=== PATIENT | male | born 1940 | race Caucasian/White ===

== ENCOUNTER 2021-05-17 12:23 | Inpatient (IN) ==
[2021-05-17] MEDS: cefTRIAXone 1,000 MG in 0.9 % Sodium Chloride Mini Bag 100 ML IVPB SCH (04:33)
[2021-05-17 07:25] LABS: Mean Corpuscular Volume 100.2 fL (83.0-100.0)
[2021-05-17 07:27] LABS: Hematocrit 40.5 % (37.5-50.1); Hemoglobin 13.9 g/dL (12.9-16.9); Mean Corpuscular HGB Conc 34.3 g/dL (31.6-35.5); Mean Corpuscular Hemoglobin 34.4 pg (28.0-33.3); Red Blood Count 4.04 M/mcL (4.19-5.50); Red Cell Distribution Width 13.6 % (11.5-14.5); White Blood Count 2.4 K/mcL (4.3-11.1)
[2021-05-17 07:31] LABS: BUN/Creatinine Ratio 19 (6-26); Blood Urea Nitrogen 23 mg/dL (8-23); Calcium 8.6 mg/dL (8.6-10.3); Carbon Dioxide 23 mEq/L (23-29); Chloride 109 mEq/L (98-107); Creatine Kinase 300 Units/L (30-223); Glucose 217 mg/dL (70-105); Lactate Dehydrogenase 594 Units/L (140-271); Osmolality,Calculated 306 (280-300); Potassium 3.1 mEq/L (3.5-5.1); Sodium 143 mEq/L (136-145); eGFR For African Americans > 60 (> 60); eGFR For Non-African Americans 59 (> 60)
[2021-05-17] MEDS: Aspirin 81 MG TAB.CHEW PO SCH (09:43)
[2021-05-17] MEDS: Azithromycin 500 MG in 0.9 % Sodium Chloride 250 ML IVPB SCH (09:52)
[2021-05-17 10:59] LABS: C-Reactive Protein 136 mg/L (Less than 10); Ferritin > 1500 ng/mL (20-250)
[~2021-05-17 12:23] MED LIST: *HR* Enoxaparin 40 MG/0.4 ML SYRINGE SQ SCH; *HR* Heparin 5,000 UNIT/ML VIAL IVP ONE; *HR* Heparin 5,000 UNIT/ML VIAL IVP PRN; 0.9 % Sodium Chloride 250 ML ONE; Heparin 25,000UNIT/250ML 1/2NS 25,000 UNIT/250 ML IV.SOLN IVC SCH; Ipratropium 1 PUFF INHALER IH PRN; Metoprolol XL (24 HR) Succ 50 MG TAB.ER.24H PO SCH; Naloxone 0.4 MG/ML INJ IVP PRN; Ondansetron 4 MG/2 ML VIAL IVP PRN; Perflutren Lipid Microsphere 1.3 ML in 0.9 % Sodium Chloride 8.7 ML IVP PRN; Remdesivir 100 MG in 0.9 % Sodium Chloride 100 ML IVPB SCH
[2021-05-17 12:27] LABS: Alanine Aminotransferase 70 Units/L (7-52); Albumin 3.3 g/dL (3.5-5.7); Albumin/Globulin Ratio 1.1 (1.1-2.2); Alkaline Phosphatase 85 Units/L (34-104); Aspartate Amino Transferase 192 Units/L (13-39); Globulin 3.1 g/dL (2.4-3.5); Total Protein 6.4 g/dL (6.4-8.9)
[2021-05-17 13:30] LABS: Hemoglobin 14.1 g/dL (12.9-16.9); Mean Corpuscular Volume 100.5 fL (83.0-100.0)
[2021-05-17 13:32] LABS: Hematocrit 41.5 % (37.5-50.1); Immature Platelets 7.5 % (1.1-6.1); Mean Corpuscular Hemoglobin 34.1 pg (28.0-33.3); Mean Platelet Volume 11.3 fL (9.4-12.4); Red Blood Count 4.13 M/mcL (4.19-5.50); Red Cell Distribution Width 13.7 % (11.5-14.5); White Blood Count 3.8 K/mcL (4.3-11.1)
[2021-05-17 13:38] LABS: Heparin anti-factor XA UFH < 0.04 IU/mL (0.30-0.70)
[2021-05-17 13:39] LABS: INR 1.1; Prothrombin Time 12.3 Seconds (9.4-12.1)
[2021-05-17 13:41] LABS: D-Dimer 2043 ng/mLFEU (0-500)
[2021-05-17] MEDS ORDERED: Remdesivir 200 MG in 0.9 % Sodium Chloride 100 ML IVPB ONE (14:53)
[2021-05-17] MEDS ORDERED: Furosemide 20 MG/2 ML VIAL IVP ONE (21:02)
[2021-05-18] MEDS: Metoprolol XL (24 HR) Succ 50 MG TAB.ER.24H PO SCH ×2 (00:34→21:16)
[2021-05-18] MEDS: Azithromycin 500 MG in 0.9 % Sodium Chloride 250 ML IVPB SCH (07:46)
[2021-05-18] MEDS: Aspirin 81 MG TAB.CHEW PO SCH (07:46)
[2021-05-18 09:38] LABS: Basophils % 0.1 %; Hematocrit 42.3 % (37.5-50.1); Hemoglobin 14.2 g/dL (12.9-16.9); Immature Granulocytes % 0.7 % (0-4); Lymphocytes # 0.6 K/mcL (0.6-4.6); Lymphocytes % 6.5 %; Mean Corpuscular HGB Conc 33.6 g/dL (31.6-35.5); Mean Corpuscular Hemoglobin 33.7 pg (28.0-33.3); Mean Corpuscular Volume 100.5 fL (83.0-100.0); Monocytes # 0.3 K/mcL (0.0-1.3); Monocytes % 3.1 %; Neutrophils # 7.7 K/mcL (1.6-8.9); Platelet Count 102 K/mcL (140-400); Red Blood Count 4.21 M/mcL (4.19-5.50); Red Cell Distribution Width 13.7 % (11.5-14.5); Segmented Neutrophils % 89.6 %
[2021-05-18] MEDS: Ipratropium 1 PUFF INHALER IH SCH ×3 (09:51→22:09)
[2021-05-18 09:55] LABS: White Blood Count 8.6 K/mcL (4.3-11.1)
[2021-05-18 10:15] LABS: Alanine Aminotransferase 128 Units/L (7-52); Albumin 3.5 g/dL (3.5-5.7); Albumin/Globulin Ratio 1.1 (1.1-2.2); Alkaline Phosphatase 106 Units/L (34-104); Aspartate Amino Transferase 268 Units/L (13-39); BUN/Creatinine Ratio 28 (6-26); Bilirubin,Direct 0.3 mg/dL (0.0-0.2); Bilirubin,Indirect 0.6 mg/dL (0.0-1.0); Bilirubin,Total 0.9 mg/dL (0.3-1.0); Blood Urea Nitrogen 35 mg/dL (8-23); Calcium 8.7 mg/dL (8.6-10.3); Carbon Dioxide 19 mEq/L (23-29); Chloride 112 mEq/L (98-107); Globulin 3.2 g/dL (2.4-3.5); Glucose 134 mg/dL (70-105); Osmolality,Calculated 306 (280-300); Potassium 3.4 mEq/L (3.5-5.1); Sodium 143 mEq/L (136-145); Total Protein 6.7 g/dL (6.4-8.9); eGFR For African Americans > 60 (> 60); eGFR For Non-African Americans 56 (> 60)
[2021-05-18] MEDS: Loratadine 10 MG TABLET PO SCH (10:43)
[2021-05-18] MEDS: Furosemide 40 MG/4 ML VIAL IVP SCH (11:02)
[2021-05-18] MEDS: cefTRIAXone 1,000 MG in 0.9 % Sodium Chloride Mini Bag 100 ML IVPB SCH (11:08)
[2021-05-18] MEDS: cefTRIAXone 1,000 MG in Water for inj. (sterile) 10 ML IVP SCH (11:39)
[2021-05-18] MEDS ORDERED: Furosemide 40 MG/4 ML VIAL IVP ONE (14:00)
[2021-05-18] MEDS ORDERED: Remdesivir 100 MG in 0.9 % Sodium Chloride 100 ML IVPB SCH (15:00)
[2021-05-19] MEDS: Ipratropium 1 PUFF INHALER IH SCH ×4 (04:27→21:35)
[2021-05-19] MEDS: *HR* Heparin 5,000 UNIT/ML VIAL SQ SCH ×2 (06:06→17:57)
[2021-05-19 06:21] LABS: Hematocrit 41.7 % (37.5-50.1); Hemoglobin 14.1 g/dL (12.9-16.9); Immature Granulocytes % 0.7 % (0-4); Lymphocytes # 0.4 K/mcL (0.6-4.6); Lymphocytes % 7.7 %; Mean Corpuscular HGB Conc 33.8 g/dL (31.6-35.5); Mean Corpuscular Hemoglobin 33.6 pg (28.0-33.3); Mean Corpuscular Volume 99.3 fL (83.0-100.0); Mean Platelet Volume 11.2 fL (9.4-12.4); Monocytes # 0.4 K/mcL (0.0-1.3); Monocytes % 6.3 %; Neutrophils # 4.9 K/mcL (1.6-8.9); Platelet Count 101 K/mcL (140-400); Red Cell Distribution Width 13.6 % (11.5-14.5); Segmented Neutrophils % 85.3 %; White Blood Count 5.7 K/mcL (4.3-11.1)
[2021-05-19 06:46] LABS: Albumin 3.5 g/dL (3.5-5.7); Albumin/Globulin Ratio 1.3 (1.1-2.2); Bilirubin,Direct 0.2 mg/dL (0.0-0.2); Bilirubin,Indirect 0.6 mg/dL (0.0-1.0); Bilirubin,Total 0.8 mg/dL (0.3-1.0); Globulin 2.8 g/dL (2.4-3.5); Total Protein 6.3 g/dL (6.4-8.9)
[2021-05-19 06:49] LABS: BUN/Creatinine Ratio 31 (6-26); Blood Urea Nitrogen 38 mg/dL (8-23); Calcium 8.7 mg/dL (8.6-10.3); Carbon Dioxide 18 mEq/L (23-29); Chloride 115 mEq/L (98-107); Glucose 120 mg/dL (70-105); Magnesium 2.1 mg/dL (1.6-2.6); Osmolality,Calculated 306 (280-300); Potassium 3.5 mEq/L (3.5-5.1); Sodium 143 mEq/L (136-145); eGFR For African Americans > 60 (> 60); eGFR For Non-African Americans 57 (> 60)
[2021-05-19] MEDS: Azithromycin 500 MG in 0.9 % Sodium Chloride 250 ML IVPB SCH (07:58)
[2021-05-19] MEDS: Furosemide 40 MG/4 ML VIAL IVP SCH (07:59)
[2021-05-19] MEDS: cefTRIAXone 1,000 MG in Water for inj. (sterile) 10 ML IVP SCH (08:00)
[2021-05-19] MEDS: Cholecalciferol (D-3) 1,000 UNIT (25MCG) TABLET PO SCH (08:00)
[2021-05-19] MEDS: Aspirin 81 MG TAB.CHEW PO SCH (08:00)
[2021-05-19] MEDS: Folic Acid 1 MG TABLET PO SCH (08:00)
[2021-05-19] MEDS: Loratadine 10 MG TABLET PO SCH (08:00)
[2021-05-19 10:26] LABS: C-Reactive Protein 36 mg/L (Less than 10)
[2021-05-19] MEDS: Acetaminophen 325 MG TABLET PO PRN (10:40)
[2021-05-19] MEDS: Remdesivir 100 MG in 0.9 % Sodium Chloride 100 ML IVPB SCH (14:26)
[2021-05-19] MEDS: Metoprolol XL (24 HR) Succ 50 MG TAB.ER.24H PO SCH (21:38)
[2021-05-20] MEDS ORDERED: *HR* LORazepam 2 MG/ML VIAL IVP ONE (02:55)
[2021-05-20] MEDS: Ipratropium 1 PUFF INHALER IH SCH ×4 (04:06→21:05)
[2021-05-20] MEDS: *HR* Heparin 5,000 UNIT/ML VIAL SQ SCH ×2 (05:39→17:19)
[2021-05-20 05:53] LABS: Basophils % 0.1 %; Immature Granulocytes % 0.7 % (0-4); Monocytes % 4.2 %; Red Cell Distribution Width 13.7 % (11.5-14.5)
[2021-05-20 05:56] LABS: Eosinophils % 0.2 %; Hematocrit 42.9 % (37.5-50.1); Hemoglobin 14.6 g/dL (12.9-16.9); Immature Platelets 11.4 % (1.1-6.1); Lymphocytes # 0.5 K/mcL (0.6-4.6); Lymphocytes % 6.3 %; Mean Corpuscular Hemoglobin 34.4 pg (28.0-33.3); Mean Corpuscular Volume 101.2 fL (83.0-100.0); Mean Platelet Volume 12.3 fL (9.4-12.4); Monocytes # 0.4 K/mcL (0.0-1.3); Platelet Count 112 K/mcL (140-400); Red Blood Count 4.24 M/mcL (4.19-5.50); Segmented Neutrophils % 88.5 %; White Blood Count 8.3 K/mcL (4.3-11.1)
[2021-05-20 06:02] LABS: Neutrophils # 7.4 K/mcL (1.6-8.9)
[2021-05-20 06:10] LABS: Albumin 3.4 g/dL (3.5-5.7); Albumin/Globulin Ratio 1.2 (1.1-2.2); Bilirubin,Direct 0.1 mg/dL (0.0-0.2); Bilirubin,Indirect 0.6 mg/dL (0.0-1.0); Bilirubin,Total 0.7 mg/dL (0.3-1.0); Globulin 2.8 g/dL (2.4-3.5); Total Protein 6.2 g/dL (6.4-8.9)
[2021-05-20 06:12] LABS: BUN/Creatinine Ratio 36 (6-26); Blood Urea Nitrogen 37 mg/dL (8-23); Calcium 8.5 mg/dL (8.6-10.3); Carbon Dioxide 19 mEq/L (23-29); Chloride 114 mEq/L (98-107); Glucose 132 mg/dL (70-105); Magnesium 2.1 mg/dL (1.6-2.6); Osmolality,Calculated 307 (280-300); Potassium 3.3 mEq/L (3.5-5.1); Sodium 143 mEq/L (136-145); eGFR For African Americans > 60 (> 60); eGFR For Non-African Americans > 60 (> 60)
[2021-05-20] MEDS: cefTRIAXone 1,000 MG in Water for inj. (sterile) 10 ML IVP SCH (07:58)
[2021-05-20] MEDS: Furosemide 40 MG/4 ML VIAL IVP SCH (07:58)
[2021-05-20] MEDS: Loratadine 10 MG TABLET PO SCH (07:59)
[2021-05-20] MEDS: Cholecalciferol (D-3) 1,000 UNIT (25MCG) TABLET PO SCH (07:59)
[2021-05-20] MEDS: Azithromycin 500 MG in 0.9 % Sodium Chloride 250 ML IVPB SCH (07:59)
[2021-05-20] MEDS: Aspirin 81 MG TAB.CHEW PO SCH (07:59)
[2021-05-20] MEDS: Folic Acid 1 MG TABLET PO SCH (08:00)
[2021-05-20] MEDS: Remdesivir 100 MG in 0.9 % Sodium Chloride 100 ML IVPB SCH (12:54)
[2021-05-20] MEDS: Metoprolol XL (24 HR) Succ 50 MG TAB.ER.24H PO SCH (21:36)
[2021-05-21] MEDS: Acetaminophen 325 MG TABLET PO PRN ×4 (02:07→23:24)
[2021-05-21] MEDS: Ipratropium 1 PUFF INHALER IH SCH ×4 (03:59→21:43)
[2021-05-21] MEDS: *HR* Enoxaparin 40 MG/0.4 ML SYRINGE SQ SCH (06:47)
[2021-05-21 07:15] LABS: Albumin 3.2 g/dL (3.5-5.7); Albumin/Globulin Ratio 1.1 (1.1-2.2); Bilirubin,Direct 0.2 mg/dL (0.0-0.2); Bilirubin,Indirect 0.6 mg/dL (0.0-1.0); Bilirubin,Total 0.8 mg/dL (0.3-1.0); Globulin 2.8 g/dL (2.4-3.5)
[2021-05-21] MEDS ORDERED: GuaiFENesin Liq 200 MG/10 ML UDC PO ONE (10:00)
[2021-05-21] MEDS: Loratadine 10 MG TABLET PO SCH (10:16)
[2021-05-21] MEDS: Cholecalciferol (D-3) 1,000 UNIT (25MCG) TABLET PO SCH (10:17)
[2021-05-21] MEDS: Folic Acid 1 MG TABLET PO SCH (10:17)
[2021-05-21] MEDS: Aspirin 81 MG TAB.CHEW PO SCH (10:17)
[2021-05-21] MEDS: Azithromycin 500 MG in 0.9 % Sodium Chloride 250 ML IVPB SCH (10:20)
[2021-05-21] MEDS: cefTRIAXone 1,000 MG in Water for inj. (sterile) 10 ML IVP SCH (10:23)
[2021-05-21] MEDS: Furosemide 40 MG/4 ML VIAL IVP SCH (10:25)
[2021-05-21 11:11] LABS: Basophils % 0.1 %; Hematocrit 45.9 % (37.5-50.1); Hemoglobin 15.5 g/dL (12.9-16.9); Immature Granulocytes % 0.8 % (0-4); Lymphocytes # 0.9 K/mcL (0.6-4.6); Lymphocytes % 6.7 %; Mean Corpuscular HGB Conc 33.8 g/dL (31.6-35.5); Mean Corpuscular Hemoglobin 33.8 pg (28.0-33.3); Mean Platelet Volume 12.3 fL (9.4-12.4); Monocytes # 0.4 K/mcL (0.0-1.3); Monocytes % 2.8 %; Platelet Count 190 K/mcL (140-400); Red Blood Count 4.59 M/mcL (4.19-5.50); Red Cell Distribution Width 13.6 % (11.5-14.5); Segmented Neutrophils % 89.6 %
[2021-05-21 11:12] LABS: White Blood Count 13.4 K/mcL (4.3-11.1)
[2021-05-21 11:55] LABS: BUN/Creatinine Ratio 28 (6-26); Blood Urea Nitrogen 35 mg/dL (8-23); Calcium 9.1 mg/dL (8.6-10.3); Carbon Dioxide 20 mEq/L (23-29); Chloride 112 mEq/L (98-107); Glucose 84 mg/dL (70-105); Osmolality,Calculated 303 (280-300); Potassium 3.3 mEq/L (3.5-5.1); Sodium 143 mEq/L (136-145); eGFR For African Americans > 60 (> 60); eGFR For Non-African Americans 56 (> 60)
[2021-05-21] MEDS: Remdesivir 100 MG in 0.9 % Sodium Chloride 100 ML IVPB SCH (16:12)
[2021-05-21] MEDS: GuaiFENesin Liq 200 MG/10 ML UDC PO SCH ×2 (16:13→23:21)
[2021-05-21 16:16] LABS: Bilirubin,Urine Negative (Negative); Blood,Urine Large (Negative); Clarity,Urine Clear (Clear); Color,Urine Yellow (Yellow); Glucose,Urine (UA) Normal (Normal); Ketones,Urine Negative (Negative); Leukocyte Esterase,Urine Trace (Negative); Mucus,Urine Few per lpf (None-Few); Nitrite,Urine Negative (Negative); PH,Urine 6.5 pH Units (5.0-8.0); Protein,Urine 30 mg/dL (Neg-Trace); RBC,Urine 30-50 per hpf (0-3); Specific Gravity,Urine 1.022 (1.010-1.025); Squamous Epithelial Cell,Urine Few per hpf (None-Few); Urobilinogen,Urine Normal (Normal); WBC,Urine 15-30 per hpf (0-3)
[2021-05-21] MEDS: Metoprolol XL (24 HR) Succ 50 MG TAB.ER.24H PO SCH (20:48)
[2021-05-22] MEDS: Ipratropium 1 PUFF INHALER IH SCH ×4 (03:45→23:58)
[2021-05-22] MEDS: *HR* Enoxaparin 40 MG/0.4 ML SYRINGE SQ SCH (04:43)
[2021-05-22 05:15] LABS: Basophils % 0.1 %; Hematocrit 42.6 % (37.5-50.1); Hemoglobin 14.8 g/dL (12.9-16.9); Immature Granulocytes % 0.9 % (0-4); Lymphocytes # 0.9 K/mcL (0.6-4.6); Lymphocytes % 6.2 %; Mean Corpuscular HGB Conc 34.7 g/dL (31.6-35.5); Mean Corpuscular Hemoglobin 34.3 pg (28.0-33.3); Mean Corpuscular Volume 98.8 fL (83.0-100.0); Mean Platelet Volume 12.5 fL (9.4-12.4); Monocytes # 0.5 K/mcL (0.0-1.3); Monocytes % 3.4 %; Neutrophils # 12.4 K/mcL (1.6-8.9); Platelet Count 175 K/mcL (140-400); Red Blood Count 4.31 M/mcL (4.19-5.50); Red Cell Distribution Width 13.8 % (11.5-14.5); Segmented Neutrophils % 89.4 %; White Blood Count 13.8 K/mcL (4.3-11.1)
[2021-05-22 05:33] LABS: Alanine Aminotransferase 52 Units/L (7-52); Albumin 3.3 g/dL (3.5-5.7); Albumin/Globulin Ratio 1.1 (1.1-2.2); Alkaline Phosphatase 89 Units/L (34-104); Aspartate Amino Transferase 30 Units/L (13-39); BUN/Creatinine Ratio 30 (6-26); Bilirubin,Direct 0.4 mg/dL (0.0-0.2); Bilirubin,Indirect 0.5 mg/dL (0.0-1.0); Bilirubin,Total 0.9 mg/dL (0.3-1.0); Blood Urea Nitrogen 34 mg/dL (8-23); Calcium 8.6 mg/dL (8.6-10.3); Carbon Dioxide 20 mEq/L (23-29); Chloride 111 mEq/L (98-107); Glucose 125 mg/dL (70-105); Osmolality,Calculated 299 (280-300); Potassium 3.7 mEq/L (3.5-5.1); Sodium 140 mEq/L (136-145); Total Protein 6.3 g/dL (6.4-8.9); eGFR For African Americans > 60 (> 60); eGFR For Non-African Americans > 60 (> 60)
[2021-05-22] MEDS: Loratadine 10 MG TABLET PO SCH (11:30)
[2021-05-22] MEDS: Acetaminophen 325 MG TABLET PO PRN (11:32)
[2021-05-22] MEDS: cefTRIAXone 1,000 MG in Water for inj. (sterile) 10 ML IVP SCH (11:32)
[2021-05-22] MEDS: GuaiFENesin Liq 200 MG/10 ML UDC PO SCH ×2 (11:32→18:23)
[2021-05-22] MEDS: Aspirin 81 MG TAB.CHEW PO SCH (11:32)
[2021-05-22] MEDS: Cholecalciferol (D-3) 1,000 UNIT (25MCG) TABLET PO SCH (11:32)
[2021-05-22] MEDS: Folic Acid 1 MG TABLET PO SCH (11:32)
[2021-05-22] MEDS ORDERED: *HR* LORazepam 0.5 MG TABLET PO PRN (12:15)
[2021-05-22] MEDS: Haloperidol Lactate 5 MG/ML VIAL IM PRN (18:24)
[2021-05-22] MEDS: Dexmedetomidine HCl 400 MCG/100 ML MLS IVC SCH (20:40)
[2021-05-22] MEDS: Metoprolol XL (24 HR) Succ 50 MG TAB.ER.24H PO SCH (21:40)
[2021-05-22] MEDS ORDERED: *HR* Metoprolol 5 MG/5 ML VIAL IVP PRN (21:51)
[2021-05-23] MEDS: Dexmedetomidine HCl 400 MCG/100 ML MLS IVC SCH ×2 (02:31→09:10)
[2021-05-23] MEDS: GuaiFENesin Liq 200 MG/10 ML UDC PO SCH ×3 (03:04→17:39)
[2021-05-23] MEDS: Ipratropium 1 PUFF INHALER IH SCH ×4 (03:17→21:16)
[2021-05-23] MEDS: Haloperidol Lactate 5 MG/ML VIAL IM PRN (05:00)
[2021-05-23] MEDS: *HR* Enoxaparin 40 MG/0.4 ML SYRINGE SQ SCH (05:00)
[2021-05-23] MEDS ORDERED: Morphine Sulfate 2 MG/ML SYRINGE ONE (09:20)
[2021-05-23 09:46] LABS: ABG Base Excess -10 mEq/L (-2 to 3); ABG HCO3 12 mEq/L (21-27); ABG Oxygen Saturation 95 % (95-98); ABG PCO2 19 mmHg (35-45); ABG PH 7.41 pH Units (7.32-7.45); ABG PO2 72 mmHg (85-104); ABG TCO2 12 mEq/L (20-26)
[2021-05-23] MEDS ORDERED: Morphine Sulfate 2 MG/ML SYRINGE IVP ONE (10:17)
[2021-05-23] MEDS: Cholecalciferol (D-3) 1,000 UNIT (25MCG) TABLET PO SCH (12:42)
[2021-05-23] MEDS: Folic Acid 1 MG TABLET PO SCH (12:42)
[2021-05-23] MEDS: Loratadine 10 MG TABLET PO SCH (12:42)
[2021-05-23] MEDS: Aspirin 81 MG TAB.CHEW PO SCH (12:42)
[2021-05-23] MEDS: Albumin Human 5% 12.5 GM/250 ML IV.SOLN IVC SCH ×5 (12:55→18:04)
[2021-05-23] MEDS: cefTRIAXone 1,000 MG in Water for inj. (sterile) 10 ML IVP SCH (13:23)
[2021-05-23 13:51] LABS: Basophils % 0.1 %; Hematocrit 38.9 % (37.5-50.1); Hemoglobin 13.3 g/dL (12.9-16.9); Lymphocytes # 0.5 K/mcL (0.6-4.6); Lymphocytes % 3.6 %; Mean Corpuscular HGB Conc 34.2 g/dL (31.6-35.5); Mean Corpuscular Hemoglobin 34.3 pg (28.0-33.3); Mean Corpuscular Volume 100.3 fL (83.0-100.0); Mean Platelet Volume 12.5 fL (9.4-12.4); Monocytes # 0.4 K/mcL (0.0-1.3); Monocytes % 2.8 %; Neutrophils # 12.1 K/mcL (1.6-8.9); Platelet Count 120 K/mcL (140-400); Red Blood Count 3.88 M/mcL (4.19-5.50); Red Cell Distribution Width 14.2 % (11.5-14.5); Segmented Neutrophils % 92.5 %; White Blood Count 13.1 K/mcL (4.3-11.1)
[2021-05-23 14:18] LABS: Alanine Aminotransferase 32 Units/L (7-52); Albumin 3.3 g/dL (3.5-5.7); Albumin/Globulin Ratio 1.2 (1.1-2.2); Alkaline Phosphatase 74 Units/L (34-104); Aspartate Amino Transferase 26 Units/L (13-39); BUN/Creatinine Ratio 30 (6-26); Bilirubin,Direct 0.3 mg/dL (0.0-0.2); Bilirubin,Indirect 0.7 mg/dL (0.0-1.0); Blood Urea Nitrogen 37 mg/dL (8-23); Calcium 8.7 mg/dL (8.6-10.3); Carbon Dioxide 14 mEq/L (23-29); Chloride 115 mEq/L (98-107); Globulin 2.8 g/dL (2.4-3.5); Glucose 142 mg/dL (70-105); Osmolality,Calculated 303 (280-300); Potassium 3.9 mEq/L (3.5-5.1); Sodium 141 mEq/L (136-145); Total Protein 6.1 g/dL (6.4-8.9); eGFR For African Americans > 60 (> 60); eGFR For Non-African Americans 57 (> 60)
[2021-05-23 19:43] LABS: C-Reactive Protein 110 mg/L (Less than 10)
[2021-05-23] MEDS: Metoprolol XL (24 HR) Succ 50 MG TAB.ER.24H PO SCH (19:49)
[2021-05-23] MEDS: *HR* LORazepam 2 MG/ML VIAL IVP PRN (20:04)
[2021-05-24] MEDS: Haloperidol Lactate 5 MG/ML VIAL IM PRN (00:05)
[2021-05-24] MEDS: GuaiFENesin Liq 200 MG/10 ML UDC PO SCH ×4 (00:05→23:29)
[2021-05-24] MEDS: Phenylephrine 10 MG in 0.9 % Sodium Chloride 250 ML IVC SCH (00:54)
[2021-05-24 01:23] LABS: BUN/Creatinine Ratio 29 (6-26); Blood Urea Nitrogen 32 mg/dL (8-23); Calcium 8.6 mg/dL (8.6-10.3); Carbon Dioxide 15 mEq/L (23-29); Chloride 116 mEq/L (98-107); Glucose 190 mg/dL (70-105); Osmolality,Calculated 308 (280-300); Potassium 3.6 mEq/L (3.5-5.1); Sodium 143 mEq/L (136-145); eGFR For African Americans > 60 (> 60); eGFR For Non-African Americans > 60 (> 60)
[2021-05-24 01:24] LABS: Albumin 3.7 g/dL (3.5-5.7); Albumin/Globulin Ratio 1.6 (1.1-2.2); Basophils % 0.1 %; Bilirubin,Direct 0.3 mg/dL (0.0-0.2); Bilirubin,Indirect 0.6 mg/dL (0.0-1.0); Bilirubin,Total 0.9 mg/dL (0.3-1.0); Globulin 2.3 g/dL (2.4-3.5); Hematocrit 35.3 % (37.5-50.1); Hemoglobin 11.9 g/dL (12.9-16.9); Immature Granulocytes % 0.7 % (0-4); Lymphocytes # 0.2 K/mcL (0.6-4.6); Lymphocytes % 2.5 %; Mean Corpuscular HGB Conc 33.7 g/dL (31.6-35.5); Mean Corpuscular Hemoglobin 34.3 pg (28.0-33.3); Mean Corpuscular Volume 101.7 fL (83.0-100.0); Mean Platelet Volume 12.5 fL (9.4-12.4); Monocytes # 0.2 K/mcL (0.0-1.3); Monocytes % 2.7 %; Neutrophils # 8.4 K/mcL (1.6-8.9); Platelet Count 107 K/mcL (140-400); Red Blood Count 3.47 M/mcL (4.19-5.50); Red Cell Distribution Width 14.5 % (11.5-14.5); White Blood Count 8.9 K/mcL (4.3-11.1)
[2021-05-24] MEDS: Dexmedetomidine HCl 400 MCG/100 ML MLS IVC SCH ×4 (02:21→17:32)
[2021-05-24] MEDS ORDERED: Haloperidol Lactate 5 MG/ML VIAL IVP ONE (03:03)
[2021-05-24] MEDS: Ipratropium 1 PUFF INHALER IH SCH ×4 (03:19→21:23)
[2021-05-24 04:39] LABS: Magnesium 2.3 mg/dL (1.6-2.6)
[2021-05-24] MEDS: *HR* Enoxaparin 40 MG/0.4 ML SYRINGE SQ SCH (04:59)
[2021-05-24] MEDS ORDERED: 0.9 % Sodium Chloride 250 ML IVC ONE (05:17)
[2021-05-24 05:18] LABS: Troponin I 0.04 ng/mL (< 0.04)
[2021-05-24] MEDS: Cholecalciferol (D-3) 1,000 UNIT (25MCG) TABLET PO SCH (10:01)
[2021-05-24] MEDS: Aspirin 81 MG TAB.CHEW PO SCH (10:01)
[2021-05-24] MEDS: Loratadine 10 MG TABLET PO SCH (10:01)
[2021-05-24] MEDS: cefTRIAXone 1,000 MG in Water for inj. (sterile) 10 ML IVP SCH (10:02)
[2021-05-24 11:54] LABS: VBG HCO3 16 mEq/L (21-27); VBG PCO2 27 mmHg (41-51); VBG PH 7.39 pH Units (7.32-7.42); VBG PO2 259 mmHg (25-50)
[2021-05-24] MEDS ORDERED: Haloperidol Lactate 5 MG/ML VIAL IVP PRN (12:23)
[2021-05-24] MEDS: Folic Acid 1 MG TABLET PO SCH (13:28)
[2021-05-24] MEDS: Metoprolol XL (24 HR) Succ 50 MG TAB.ER.24H PO SCH (19:22)
[2021-05-24] MEDS: *HR* LORazepam 2 MG/ML VIAL IVP PRN (21:55)
[2021-05-25] MEDS: Dexmedetomidine HCl 400 MCG/100 ML MLS IVC SCH ×4 (03:31→19:11)
[2021-05-25] MEDS: Ipratropium 1 PUFF INHALER IH SCH ×4 (03:33→20:02)
[2021-05-25] MEDS: Phenylephrine 10 MG in 0.9 % Sodium Chloride 250 ML IVC SCH ×2 (03:33→13:00)
[2021-05-25] MEDS: *HR* Enoxaparin 40 MG/0.4 ML SYRINGE SQ SCH (05:41)
[2021-05-25] MEDS: *HR* LORazepam 2 MG/ML VIAL IVP PRN ×8 (05:41→15:37)
[2021-05-25] MEDS: GuaiFENesin Liq 200 MG/10 ML UDC PO SCH ×2 (07:12→19:10)
[2021-05-25] MEDS: Aspirin 81 MG TAB.CHEW PO SCH (07:13)
[2021-05-25] MEDS: Cholecalciferol (D-3) 1,000 UNIT (25MCG) TABLET PO SCH (07:13)
[2021-05-25] MEDS: Folic Acid 1 MG TABLET PO SCH (07:13)
[2021-05-25] MEDS: cefTRIAXone 1,000 MG in Water for inj. (sterile) 10 ML IVP SCH (07:13)
[2021-05-25] MEDS: Loratadine 10 MG TABLET PO SCH (07:13)
[2021-05-25] MEDS: Morphine Sulfate 2 MG/ML SYRINGE IVP PRN ×6 (11:45→14:51)
[2021-05-25] MEDS: Metoprolol XL (24 HR) Succ 50 MG TAB.ER.24H PO SCH (20:27)
[2021-05-25 23:55] VITALS: BP 107/75; PULSE 99; TEMP 96.4; O2SAT 54
[2021-05-26] MEDS: GuaiFENesin Liq 200 MG/10 ML UDC PO SCH ×2 (00:04→09:06)
[2021-05-26] MEDS: Dexmedetomidine HCl 400 MCG/100 ML MLS IVC SCH ×2 (00:41→09:32)
[2021-05-26] MEDS: Ipratropium 1 PUFF INHALER IH SCH ×3 (03:00→16:58)
[2021-05-26] MEDS: Morphine Sulfate Oral CONC 10 MG/0.5 ML ORAL.SYG SL PRN ×2 (03:11→06:54)
[2021-05-26] MEDS: *HR* Enoxaparin 40 MG/0.4 ML SYRINGE SQ SCH (03:12)
[2021-05-26] MEDS: *HR* LORazepam 2 MG/ML VIAL IVP PRN ×2 (07:04→09:24)
[2021-05-26] MEDS: Cholecalciferol (D-3) 1,000 UNIT (25MCG) TABLET PO SCH (09:06)
[2021-05-26] MEDS: Aspirin 81 MG TAB.CHEW PO SCH (09:06)
[2021-05-26] MEDS: Folic Acid 1 MG TABLET PO SCH (09:06)
[2021-05-26] MEDS: Loratadine 10 MG TABLET PO SCH (09:06)
[2021-05-26] MEDS: cefTRIAXone 1,000 MG in Water for inj. (sterile) 10 ML IVP SCH (09:11)
[2021-05-26] MEDS: Morphine Sulfate 2 MG/ML SYRINGE IVP PRN (09:28)
== END 2021-05-26 13:00 | disposition expired | DRG 177 ==
LOC: 2ANU → SUATTDRO 12:23 → 3NENU 05-22 21:06
PROVIDERS: ADMIT Family Medicine; ATTEND Internal Medicine